=== PATIENT | female | born 1980 | race Caucasian/White ===

== ENCOUNTER 2018-11-07 14:32 | Inpatient (IN) | payer MEDICAID ==
[~2018-11-07] VITALS: Ht 167.6 cm; Wt 81.6 kg
[2018-11-07] MEDS ORDERED: ZOLPIDEM TARTRATE 10 MG TABLET PO PRN (16:30)
[2018-11-07] MEDS ORDERED: LORazepam 2 MG TABLET PO PRN (16:30)
[2018-11-07 17:19] VITALS: BP 122/76
[2018-11-08 01:12] VITALS: BP 118/71
[2018-11-08 08:13] VITALS: BP 120/64
[2018-11-08] MEDS ORDERED: LOPERAMIDE HCL 2 MG CAPSULE PO PRN (08:15)
[2018-11-08] MEDS ORDERED: MAGNESIUM HYDROXIDE SUSPENSION 30 ML UDCUP PO PRN (08:15)
[2018-11-08] MEDS ORDERED: CloNIDine HCL 0.1 MG TABLET PO PRN (08:15)
[2018-11-08] MEDS ORDERED: IBUPROFEN 600 MG TABLET PO PRN (08:15)
[2018-11-08] MEDS ORDERED: ONDANSETRON HCL 4 MG TABLET PO PRN (08:15)
[2018-11-08] MEDS ORDERED: BACITRACIN 28.4 GM OINTMENT TP PRN (08:15)
[2018-11-08] MEDS ORDERED: ALBUTEROL SULFATE HFA 90 MCG/PUFF 8 GM INHALER IH PRN (08:15)
[2018-11-08] MEDS ORDERED: BENZOCAINE/MENTHOL LOZENGE MM PRN (08:15)
[2018-11-08] MEDS ORDERED: PETROLATUM,WHITE 71 GM JELLY TP PRN (08:15)
[2018-11-08 08:43] LABS: BASOPHILS % (AUTO) 0.7 % (0.0-2.0); EOSINOPHILS % (AUTO) 1.7 % (1.0-6.0); HEMOGLOBIN 13.7 g/dL (12.0-16.0); LYMPHOCYTES # (AUTO) 1.7 K/uL (1.0-4.8); LYMPHOCYTES % (AUTO) 25.4 % (22.0-44.0); MEAN CORPUSCULAR HEMOGLOBIN 30.2 pg (26.0-34.0); MEAN CORPUSCULAR HGB CONC 33.5 G/dL (31.0-37.0); MEAN CORPUSCULAR VOLUME 90 fL (80-100); MONOCYTES # (AUTO) 0.7 K/uL (0.1-1.0); MONOCYTES % (AUTO) 10.5 % (2.0-9.0); NEUTROPHILS # (AUTO) 4.2 K/uL (1.8-7.7); NEUTROPHILS % (AUTO) 61.7 % (40.0-70.0); PLATELET COUNT (AUTO) 272 K/uL (150-450); RED BLOOD CELL COUNT(AUTO) 4.55 MIL/uL (4.00-5.20)
[2018-11-08 08:54] LABS: HEMOGLOBIN A1C 5.4 % (4.5-6.2)
[2018-11-08 09:35] LABS: ALANINE AMINOTRANSFERASE 64 U/L (12-78); ALBUMIN 3.1 g/dL (3.4-5.0); ALKALINE PHOSPHATASE 51 U/L (46-116); ANION GAP 4 mmol/L (8-16); ASPARTATE AMINOTRANSFERASE 54 U/L (15-37); BILIRUBIN,TOTAL 0.2 mg/dL (0.1-1.0); CALCIUM, TOTAL 8.6 mg/dL (8.8-10.5); CARBON DIOXIDE 31 mmol/L (22-29); CHLORIDE 101 mmol/L (98-107); CHOL/HDL RATIO 2.9 (3.9-5.7); CHOLESTEROL 103 mg/dL (131-200); CREATININE 0.64 mg/dL (0.60-1.30); FREE T4 (FREE THYROXINE) 1.12 ng/dL (0.76-1.46); GLOMERULAR FILTR. RATE CALC > 60 mL/min (>60); GLUCOSE,RANDOM 82 mg/dL (70-110); HCG,QUANTITATIVE < 1 mIU/mL (0-6); HDL CHOLESTEROL 36 mg/dL (40-60); LDL CHOL (CALC.) 46 mg/dL (0-130); POTASSIUM 4.4 mmol/L (3.5-5.1); SODIUM SERUM 136 mmol/L (136-145); THYROID STIMULATING HORMONE 6.56 uIU/mL (0.36-3.74); TRIGLYCERIDES 103 mg/dL (15-150); UREA NITROGEN, BLOOD 10 mg/dL (7-18)
[2018-11-08] MEDS: OLANZapine 5 MG TABLET PO SCH (16:13)
[2018-11-08 16:14] VITALS: BP 138/87
[2018-11-09 04:21] VITALS: BP 124/77
[2018-11-09 08:11] VITALS: BP 122/69
[2018-11-09] MEDS: OLANZapine 5 MG TABLET PO SCH ×2 (09:00→16:57)
[2018-11-09 16:05] VITALS: BP 121/80
[2018-11-10 05:53] VITALS: BP 149/87
[2018-11-10] MEDS: LEVOTHYROXINE SODIUM 50 MCG TABLET PO SCH (06:30)
[2018-11-10] MEDS: MAG HYDROX/AL HYDROX/SIMETH ES 30 ML SUSPENSION UDCUP PO PRN (06:51)
[2018-11-10] MEDS: OLANZapine 5 MG TABLET PO SCH (08:22)
[2018-11-10 08:36] VITALS: BP 118/60
[2018-11-10 16:00] VITALS: BP 118/62
[2018-11-10] MEDS: OLANZapine 10 MG TABLET PO SCH (16:37)
[2018-11-11 06:10] VITALS: BP 114/64
[2018-11-11] MEDS: LEVOTHYROXINE SODIUM 50 MCG TABLET PO SCH (06:30)
[2018-11-11 08:19] VITALS: BP 121/69
[2018-11-11] MEDS: OLANZapine 10 MG TABLET PO SCH ×2 (08:28→16:24)
[2018-11-11] MEDS ORDERED: OLAN10TA3 PO (11:07)
[2018-11-11 16:14] VITALS: BP 112/67
[2018-11-12 05:29] VITALS: BP 119/70
[2018-11-12] MEDS: LEVOTHYROXINE SODIUM 50 MCG TABLET PO SCH (06:12)
[2018-11-12] MEDS: OLANZapine 10 MG TABLET PO SCH ×2 (09:00→17:00)
[2018-11-12 16:02] VITALS: BP 147/79
[2018-11-12] MEDS ORDERED: HALOPERIDOL LACTATE 5 MG/ML VIAL ONE (16:49)
[2018-11-12] MEDS ORDERED: LORazepam 2 MG/ML VIAL ONE (16:49)
[2018-11-12] MEDS ORDERED: DiphenhydrAMINE HCL 50 MG/ML VIAL ONE (16:49)
[2018-11-12] MEDS ORDERED: LORazepam 2 MG/ML VIAL IM ONE (17:00)
[2018-11-12] MEDS ORDERED: DiphenhydrAMINE HCL 50 MG/ML VIAL IM ONE (17:00)
[2018-11-12] MEDS ORDERED: HALOPERIDOL LACTATE 5 MG/ML VIAL IM ONE (17:00)
[2018-11-13 02:37] VITALS: BP 135/70
[2018-11-13] MEDS: LEVOTHYROXINE SODIUM 50 MCG TABLET PO SCH (06:30)
[2018-11-13 08:08] VITALS: BP 129/81
[2018-11-13] MEDS: OLANZapine 10 MG TABLET PO SCH ×2 (08:16→17:00)
[2018-11-13 16:05] VITALS: BP 136/74
[2018-11-13] MEDS: MAG HYDROX/AL HYDROX/SIMETH ES 30 ML SUSPENSION UDCUP PO PRN (18:36)
[2018-11-14 05:32] VITALS: BP 127/66
[2018-11-14] MEDS: LEVOTHYROXINE SODIUM 50 MCG TABLET PO SCH (06:30)
[2018-11-14 08:00] VITALS: BP 116/79
[2018-11-14] MEDS: OLANZapine 10 MG TABLET PO SCH ×2 (08:30→17:00)
[2018-11-14 16:06] VITALS: BP 130/81
[2018-11-15] MEDS: LEVOTHYROXINE SODIUM 50 MCG TABLET PO SCH (06:30)
[2018-11-15] MEDS: OLANZapine 10 MG TABLET PO SCH ×2 (08:25→17:00)
[2018-11-15 12:44] VITALS: BP 143/66
[2018-11-15 16:05] VITALS: BP 132/79
[2018-11-16] MEDS: LEVOTHYROXINE SODIUM 50 MCG TABLET PO SCH (06:26)
[2018-11-16 06:46] VITALS: BP 135/85
[2018-11-16] MEDS: OLANZapine 10 MG TABLET PO SCH ×2 (08:15→17:00)
[2018-11-17] MEDS: LEVOTHYROXINE SODIUM 50 MCG TABLET PO SCH (06:24)
[2018-11-17] MEDS: OLANZapine 10 MG TABLET PO SCH ×2 (08:52→17:00)
[2018-11-17] MEDS: HALOPERIDOL LACTATE 5 MG/ML VIAL IM PRN ×2 (12:42→17:35)
[2018-11-17 16:24] VITALS: BP 111/80
[2018-11-18 01:24] VITALS: BP 128/81
[2018-11-18] MEDS: LEVOTHYROXINE SODIUM 50 MCG TABLET PO SCH (06:25)
[2018-11-18] MEDS: OLANZapine 10 MG TABLET PO SCH ×2 (09:00→17:21)
[2018-11-18 16:15] VITALS: BP 123/71
[2018-11-18] MEDS: NICOTINE 21 MG/24 HOUR PATCH TD PRN (19:43)
[2018-11-19 01:27] VITALS: BP 125/80
[2018-11-19] MEDS: LEVOTHYROXINE SODIUM 50 MCG TABLET PO SCH (06:30)
[2018-11-19] MEDS: OLANZapine 10 MG TABLET PO SCH ×2 (08:26→16:42)
[2018-11-19 16:17] VITALS: BP 134/84
[2018-11-19] MEDS: HALOPERIDOL 5 MG TABLET PO PRN (16:42)
[2018-11-20 04:11] VITALS: BP 126/72
[2018-11-20] MEDS: LEVOTHYROXINE SODIUM 50 MCG TABLET PO SCH (06:25)
[2018-11-20] MEDS: HALOPERIDOL 5 MG TABLET PO PRN ×2 (08:01→21:17)
[2018-11-20] MEDS: OLANZapine 10 MG TABLET PO SCH ×2 (08:01→17:00)
[2018-11-20] MEDS: NICOTINE 21 MG/24 HOUR PATCH TD PRN (08:10)
[2018-11-20] MEDS: LITHIUM CARBONATE 300 MG CAPSULE PO SCH ×2 (13:25→17:00)
[2018-11-20 16:15] VITALS: BP 141/91
[2018-11-20] MEDS: HALOPERIDOL LACTATE 5 MG/ML VIAL IM PRN (17:48)
[2018-11-21 04:48] VITALS: BP 135/78
[2018-11-21] MEDS: LEVOTHYROXINE SODIUM 50 MCG TABLET PO SCH (06:17)
[2018-11-21] MEDS: NICOTINE 21 MG/24 HOUR PATCH TD PRN (08:21)
[2018-11-21] MEDS: LITHIUM CARBONATE 300 MG CAPSULE PO SCH ×2 (08:23→16:14)
[2018-11-21] MEDS: OLANZapine 10 MG TABLET PO SCH ×2 (08:23→16:14)
[2018-11-21] MEDS: HALOPERIDOL 5 MG TABLET PO PRN ×2 (08:57→20:32)
[2018-11-21 16:37] VITALS: BP 136/84
[2018-11-22 03:03] VITALS: BP 117/73
[2018-11-22] MEDS: LEVOTHYROXINE SODIUM 50 MCG TABLET PO SCH (06:05)
[2018-11-22] MEDS: NICOTINE 21 MG/24 HOUR PATCH TD PRN (08:08)
[2018-11-22] MEDS: OLANZapine 10 MG TABLET PO SCH ×2 (08:09→16:24)
[2018-11-22] MEDS: LITHIUM CARBONATE 300 MG CAPSULE PO SCH ×2 (08:09→16:24)
[2018-11-22] MEDS: HALOPERIDOL 5 MG TABLET PO PRN ×2 (09:15→23:58)
[2018-11-22 16:13] VITALS: BP 121/78
[2018-11-23 05:14] VITALS: BP 120/75
[2018-11-23] MEDS: LEVOTHYROXINE SODIUM 50 MCG TABLET PO SCH (06:04)
[2018-11-23 08:23] VITALS: BP 135/71
[2018-11-23] MEDS: LITHIUM CARBONATE 300 MG CAPSULE PO SCH ×2 (08:58→16:20)
[2018-11-23] MEDS: OLANZapine 10 MG TABLET PO SCH ×2 (08:58→16:20)
[2018-11-23] MEDS: NICOTINE 21 MG/24 HOUR PATCH TD PRN (08:59)
[2018-11-23] MEDS: HALOPERIDOL 5 MG TABLET PO PRN ×2 (15:37→21:26)
[2018-11-23 16:10] VITALS: BP 131/71
[2018-11-24 06:06] VITALS: BP 127/74
[2018-11-24] MEDS: LEVOTHYROXINE SODIUM 50 MCG TABLET PO SCH (06:43)
[2018-11-24 08:28] VITALS: BP 147/108
[2018-11-24] MEDS: NICOTINE 21 MG/24 HOUR PATCH TD PRN (08:34)
[2018-11-24] MEDS: OLANZapine 10 MG TABLET PO SCH ×2 (08:35→16:40)
[2018-11-24] MEDS: LITHIUM CARBONATE 300 MG CAPSULE PO SCH ×2 (08:35→16:40)
[2018-11-24 10:00] VITALS: BP 130/74
[2018-11-24 16:26] VITALS: BP 124/84
[2018-11-24] MEDS: HALOPERIDOL 5 MG TABLET PO PRN (20:05)
[2018-11-25 04:20] VITALS: BP 138/80
[2018-11-25] MEDS: LEVOTHYROXINE SODIUM 50 MCG TABLET PO SCH (06:06)
[2018-11-25] MEDS: LITHIUM CARBONATE 300 MG CAPSULE PO SCH (09:18)
[2018-11-25] MEDS: OLANZapine 10 MG TABLET PO SCH ×2 (09:18→17:02)
[2018-11-25] MEDS: NICOTINE 21 MG/24 HOUR PATCH TD PRN (09:19)
[2018-11-25 16:11] VITALS: BP 126/75
[2018-11-25] MEDS: LITHIUM CARBONATE 600 MG CAPSULE PO SCH (17:02)
[2018-11-26 00:57] VITALS: BP 120/81
[2018-11-26] MEDS: LEVOTHYROXINE SODIUM 50 MCG TABLET PO SCH (06:31)
[2018-11-26] MEDS: LITHIUM CARBONATE 600 MG CAPSULE PO SCH ×2 (08:02→16:01)
[2018-11-26] MEDS: OLANZapine 10 MG TABLET PO SCH ×2 (08:02→16:01)
[2018-11-26] MEDS: NICOTINE 21 MG/24 HOUR PATCH TD PRN (09:00)
[2018-11-26 16:03] VITALS: BP 121/87
[2018-11-26 16:04] VITALS: BP 121/78
[2018-11-26 18:04] VITALS: BP 121/78
[2018-11-26] MEDS: HALOPERIDOL 5 MG TABLET PO PRN (21:47)
[2018-11-27 03:39] VITALS: BP 108/69
[2018-11-27] MEDS: LEVOTHYROXINE SODIUM 50 MCG TABLET PO SCH (06:32)
[2018-11-27 08:05] VITALS: BP 120/68
[2018-11-27] MEDS: OLANZapine 10 MG TABLET PO SCH ×2 (08:45→16:07)
[2018-11-27] MEDS: LITHIUM CARBONATE 600 MG CAPSULE PO SCH ×2 (08:45→16:07)
[2018-11-27] MEDS: NICOTINE 21 MG/24 HOUR PATCH TD PRN (15:07)
[2018-11-27 16:33] VITALS: BP 115/60
[2018-11-27] MEDS: HALOPERIDOL 5 MG TABLET PO PRN (21:35)
[2018-11-28 06:04] VITALS: BP 111/71
[2018-11-28] MEDS: LEVOTHYROXINE SODIUM 50 MCG TABLET PO SCH (07:00)
[2018-11-28] MEDS: LITHIUM CARBONATE 600 MG CAPSULE PO SCH ×2 (08:07→16:04)
[2018-11-28] MEDS: OLANZapine 10 MG TABLET PO SCH ×2 (08:07→16:04)
[2018-11-28 08:21] VITALS: BP 135/82
[2018-11-28] MEDS: NICOTINE 21 MG/24 HOUR PATCH TD PRN (08:34)
[2018-11-28 16:34] VITALS: BP 116/75
[2018-11-28] MEDS ORDERED: BENZOCAINE 10% 7 GM GEL TP PRN (20:15)
[2018-11-28] MEDS ORDERED: CHLORHEXIDINE GLUCONATE 0.12% 15 ML UDCUP ORAL RINSE PO SCH (21:00)
[2018-11-29] MEDS: HALOPERIDOL 5 MG TABLET PO PRN (00:03)
[2018-11-29 06:04] VITALS: BP 120/81
[2018-11-29] MEDS: LEVOTHYROXINE SODIUM 50 MCG TABLET PO SCH (06:34)
[2018-11-29 08:06] VITALS: BP 110/69
[2018-11-29] MEDS: LITHIUM CARBONATE 600 MG CAPSULE PO SCH ×2 (09:45→17:03)
[2018-11-29] MEDS: OLANZapine 10 MG TABLET PO SCH ×2 (09:45→17:03)
[2018-11-29] MEDS: CHLORHEXIDINE GLUCONATE 0.12% 15 ML UDCUP ORAL RINSE PO SCH ×3 (09:46→17:03)
[2018-11-29] MEDS: NICOTINE 21 MG/24 HOUR PATCH TD PRN (09:52)
[2018-11-29 19:42] VITALS: BP 106/63
[2018-11-30] VITALS (8 sets, daily range): BP systolic 105–121; BP diastolic 66–84
[2018-11-30] MEDS: LEVOTHYROXINE SODIUM 50 MCG TABLET PO SCH (06:36)
[2018-11-30] MEDS: CHLORHEXIDINE GLUCONATE 0.12% 15 ML UDCUP ORAL RINSE PO SCH ×3 (07:11→17:09)
[2018-11-30] MEDS: OLANZapine 10 MG TABLET PO SCH ×2 (08:44→17:08)
[2018-11-30] MEDS: LITHIUM CARBONATE 600 MG CAPSULE PO SCH ×2 (08:44→17:08)
[2018-11-30] MEDS: NICOTINE 21 MG/24 HOUR PATCH TD PRN (14:09)
[2018-11-30] MEDS: ACETAMINOPHEN 325 MG TABLET PO PRN (19:35)
[2018-11-30] MEDS ORDERED: LITH600 PO (23:16)
[2018-11-30] MEDS ORDERED: LEVO50 PO (23:16)
[2018-12-01 04:35] VITALS: BP 119/73
[2018-12-01] MEDS: LEVOTHYROXINE SODIUM 50 MCG TABLET PO SCH (06:30)
[2018-12-01] MEDS: LITHIUM CARBONATE 600 MG CAPSULE PO SCH ×2 (08:13→16:08)
[2018-12-01] MEDS: OLANZapine 10 MG TABLET PO SCH ×2 (08:13→16:08)
[2018-12-01] MEDS: CHLORHEXIDINE GLUCONATE 0.12% 15 ML UDCUP ORAL RINSE PO SCH ×3 (08:13→16:08)
[2018-12-01 13:01] VITALS: BP 114/69
[2018-12-01] MEDS: ACETAMINOPHEN 325 MG TABLET PO PRN (15:59)
[2018-12-01 16:01] VITALS: BP 112/74
[2018-12-02 03:09] VITALS: BP 120/81
[2018-12-02] MEDS: LEVOTHYROXINE SODIUM 50 MCG TABLET PO SCH (06:43)
[2018-12-02 08:07] VITALS: BP 127/74
[2018-12-02] MEDS: LITHIUM CARBONATE 600 MG CAPSULE PO SCH ×2 (08:37→16:16)
[2018-12-02] MEDS: OLANZapine 10 MG TABLET PO SCH ×2 (08:37→16:16)
[2018-12-02] MEDS: NICOTINE 21 MG/24 HOUR PATCH TD PRN (10:26)
[2018-12-02] MEDS: CHLORHEXIDINE GLUCONATE 0.12% 15 ML UDCUP ORAL RINSE PO SCH ×3 (10:46→17:35)
[2018-12-02 13:55] VITALS: BP 124/90
[2018-12-02] MEDS: ACETAMINOPHEN 325 MG TABLET PO PRN (14:00)
[2018-12-02 16:05] VITALS: BP 106/66
[2018-12-03 06:10] VITALS: BP 106/68
[2018-12-03] MEDS: LEVOTHYROXINE SODIUM 50 MCG TABLET PO SCH (06:43)
[2018-12-03] MEDS: CHLORHEXIDINE GLUCONATE 0.12% 15 ML UDCUP ORAL RINSE PO SCH (06:43)
[2018-12-03 08:19] VITALS: BP 116/80
[2018-12-03] MEDS ORDERED: PERID15L MM (09:12)
[2018-12-03] MEDS: OLANZapine 10 MG TABLET PO SCH (09:55)
[2018-12-03] MEDS: LITHIUM CARBONATE 600 MG CAPSULE PO SCH (09:55)
== END 2018-12-03 10:15 | disposition home or self-care (01) | DRG 750 ==
LOC: B3A 16:32 → B2S 11-25 12:14 → B3A 11-29 15:34 → B2S 11-29 17:49 → B3A 11-29 20:24 → B2S 11-30 23:00
PROVIDERS: ADMIT Psychiatry & Neurology Psychiatry; ATTEND Psychiatry & Neurology Psychiatry
DX: F25.1 Schizoaffective disorder, depressive type (principal); Z59.0 Homelessness; E03.9 Hypothyroidism, unspecified; F12.90 Cannabis use, unspecified, uncomplicated; F41.9 Anxiety disorder, unspecified; G47.00 Insomnia, unspecified; K04.7 Periapical abscess without sinus; K59.00 Constipation, unspecified; Y04.0XXA Assault by unarmed brawl or fight, initial encounter; Z88.0 Allergy status to penicillin; Y93.89 Activity, other specified; Y92.89 Other specified places as the place of occurrence of the external cause; Z91.19 Patient's noncompliance with other medical treatment and regimen
CPT/HCPCS: 83036; 84439; 84443; 87081; J1200; J1630; J2060; Q0162

== ENCOUNTER 2018-11-30 23:04 | Emergency (ER) | payer MEDICAID, OTHER ==
[~2018-11-30] VITALS: Ht 167.6 cm; Wt 83.2 kg
[~2018-11-30 23:04] MED LIST: OLAN10TA3 PO
[2018-11-30] MEDS ORDERED: LITH600 PO (23:16)
[2018-11-30] MEDS ORDERED: LEVO50 PO (23:16)
[2018-11-30 23:34] VITALS: BP 92/57
== END 2018-12-01 03:02 | disposition other institution (70) ==
LOC: EMS 23:06
DX: S09.90XA Unspecified injury of head, initial encounter (principal); Z88.0 Allergy status to penicillin; Z79.899 Other long term (current) drug therapy; Y04.0XXA Assault by unarmed brawl or fight, initial encounter; Y93.89 Activity, other specified; Y92.89 Other specified places as the place of occurrence of the external cause; Y99.8 Other external cause status